=== PATIENT | male | born 1990 | race Caucasian/White ===

== ENCOUNTER 2020-05-17 20:44 | Emergency (ER) | payer SELFPAY ==
[~2020-05-17] VITALS: Ht 182.9 cm; Wt 136.1 kg
[2020-05-17 21:40] VITALS: BP_SYST 171
--- NOTE | 2020-05-18 02:00 | NUR ---
PT. MOVED TO ED COUNT INCLUDES THE [facility]
--- NOTE | 2020-05-18 02:02 | NUR ---
DR. REED AT BEDSIDE TO EVALUATE PT STATUS
[2020-05-18] MEDS ORDERED: KETOROLAC TROMETHAMINE 60 MG/2 ML VIAL IM ONE (02:11)
[2020-05-18] MEDS: KETOROLAC TROMETHAMINE 60 MG/2 ML VIAL IM ONE (02:18)
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
[2020-05-18 02:50] VITALS: BP_SYST 150
--- NOTE | 2020-05-18 02:50 | NUR ---
Patient given written and verbal discharge instructions and verbalizes understanding. ER MD REED discussed with patient the results and treatment provided. Patient in stable condition. ID arm band removed. Rx of NORCO AND IBUPROFEN given. Patient educated on pain management and to follow up with PMD. Pain Scale 2/10. Opportunity for questions provided and answered. Medication side effect fact sheet provided.
== END 2020-05-18 02:50 | disposition home or self-care (01) ==
LOC: SED 20:44
DX: S93.691A Other sprain of right foot, initial encounter (principal); X50.0XXA Overexertion from strenuous movement or load, initial encounter; Y93.89 Activity, other specified; Y92.89 Other specified places as the place of occurrence of the external cause; Y99.8 Other external cause status
CPT/HCPCS: 73630; 96372; 99283; J1885